=== PATIENT | male | born 2000 | race Caucasian/White ===

== ENCOUNTER 2024-02-29 16:50 | Emergency (ER) | payer OTHER ==
[~2024-02-29] VITALS: Ht 185.4 cm; Wt 75.3 kg
[2024-02-29 19:41] LABS: BASOPHILS 0.2 % (0-2); EOSINOPHILS 0.2 % (0-6); HEMATOCRIT 38.9 % (35.0-50.0); HEMOGLOBIN 13.5 g/dL (12.0-18.0); LYMPHOCYTES 12.2 % (24-44); MCHC 34.7 g/dl (30-36); MCV 89.2 fl (81-99); MONOCYTES 7.9 % (0-12); NEUTROPHILS 79.5 % (39-80); PLATELET COUNT 212 K/uL (140-440); RBC 4.36 M/ul (4.3-5.7); RDW 12.7 (10.5-15.0)
[2024-02-29 20:03] LABS: ALBUMIN 4.6 g/dL (3.4-5.0); ALBUMIN/GLOBULIN RATIO 1.39 (1.1-2.4); ANION GAP 12.5 (7-21); BILIRUBIN, TOTAL 0.4 ng/dL (0.2-1.0); BUN/CREATININE RATIO 18.86 (6.0-28.6); CALCIUM 9.3 mg/dL (8.5-10.1); CREATININE, SERUM 1.06 mg/dL (0.70-1.30); MAGNESIUM 1.8 mg/dL (1.8-2.4); POTASSIUM 3.5 mmol/L (3.5-5.1); PROTEIN, TOTAL 7.9 g/dL (6.4-8.2); TSH, 3RD GENERATION 1.211 uIU/mL (0.358-3.740)
[2024-02-29 20:12] LABS: AMPHETAMINES, URINE NEGATIVE (NEGATIVE); BARBITURATES, URINE NEGATIVE (NEGATIVE); BENZODIAZEPINE, URINE NEGATIVE (NEGATIVE); BUPRENORPHINE, URINE NEGATIVE (NEGATIVE); CANNABINOID, URINE POSITIVE (NEGATIVE); COCAINE, URINE NEGATIVE (NEGATIVE); ECSTASY, URINE NEGATIVE (NEGATIVE); FENTANYL, URINE NEGATIVE (NEGATIVE); METHADONE, URINE NEGATIVE (NEGATIVE); OPIATES, URINE NEGATIVE (NEGATIVE); OXYCODONE, URINE NEGATIVE (NEGATIVE); PHENCYCLIDINE, URINE NEGATIVE (NEGATIVE)
[2024-02-29 21:48] VITALS: BP 126/75
--- NOTE | 2024-03-01 13:54 | EKG ---
[facility] [address] [facility] [facility] [place], [place] [address] Signed Sinus tachycardia Right atrial enlargement Nonspecific ST abnormality Abnormal ECG No previous ECGs available Confirmed by Paradise Rios MD ([id number]) on 03/01/2024 1:53:48 PM Electronically Signed By: PARADISE RIOS 03/01/24 1354 PATIENT NAME: DANIELSEVERARDO Electrocardiogram DATE OF : [birth year] PHYSICIAN: PARADISE RIOS REPORT #: [id number] REPORT IS CONFIDENTIAL AND NOT TO BE RELEASED WITHOUT AUTHORIZATION
[2024-03-02 15:33] LABS: THYROXINE 8.51 ug/dL (4.50-11.70)
== END 2024-02-29 21:48 | disposition home or self-care (01) ==
LOC: ED 16:50
PROVIDERS: Emergency Medicine
DX: R00.2 Palpitations (principal)
CPT/HCPCS: 36415; 80053; 80307; 83735; 84436; 84443; 84484; 85025; 93005; 93010; 99285

== ENCOUNTER 2024-04-04 09:37 | Emergency (ER) | payer OTHER ==
[~2024-04-04] VITALS: Ht 185.4 cm; Wt 78.0 kg
[2024-04-04 10:51] VITALS: BP 123/78
== END 2024-04-04 10:52 | disposition home or self-care (01) ==
LOC: ED 09:37
DX: S93.401A Sprain of unspecified ligament of right ankle, initial encounter (principal); X50.0XXA Overexertion from strenuous movement or load, initial encounter
CPT/HCPCS: 73610; 99283

== ENCOUNTER 2024-04-06 07:54 | Emergency (ER) | payer OTHER ==
[~2024-04-06] VITALS: Ht 185.4 cm; Wt 78.2 kg
--- OUTSIDE RECORDS SUMMARY | 2024-04-06 07:59 | XMS ---
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 E.D. VISIT COUNT (12 MO.) 3 [facility] TOTAL 3 NOTE: Visits indicate total known visits. ED/UCC VISIT TRACKING (12 MO.) 04/06/2024 07:54 [facility] TYPE: Emergency COMPLAINT: - RT ANKLE PAIN 04/04/2024 09:39 [facility] TYPE: Emergency COMPLAINT: - RT ANKLE INJURY DIAGNOSES: - Overexertion from strenuous movement or load, initial encounter - Sprain of unspecified ligament of right ankle, initial encounter - Unspecified injury of right ankle, initial encounter 02/29/2024 16:51 [facility] TYPE: Emergency COMPLAINT: - CHEST PAIN DIAGNOSES: - Palpitations INPATIENT VISIT TRACKING (12 MO.) No inpatient visits to display in this time frame [email or web address]
[2024-04-06] MEDS ORDERED: HYDROCODON-ACE1 EA11 PO (08:27)
[2024-04-06] MEDS ORDERED: HYDROCODONE/ACETA 7.5/325 TAB PO ONE (08:30)
[2024-04-06 08:36] VITALS: BP 140/89
== END 2024-04-06 08:37 | disposition home or self-care (01) ==
LOC: ED 07:54
DX: S93.401A Sprain of unspecified ligament of right ankle, initial encounter (principal); X58.XXXA Exposure to other specified factors, initial encounter; Y93.01 Activity, walking, marching and hiking
CPT/HCPCS: 99283; A9270

== ENCOUNTER 2024-04-10 06:10 | Emergency (ER) | payer OTHER ==
[~2024-04-10] VITALS: Ht 185.4 cm; Wt 79.2 kg
[~2024-04-10 06:10] MED LIST: HYDROCODON-ACE1 EA11 PO
--- OUTSIDE RECORDS SUMMARY | 2024-04-10 06:13 | XMS ---
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 E.D. VISIT COUNT (12 MO.) 4 [facility] TOTAL 4 NOTE: Visits indicate total known visits. ED/UCC VISIT TRACKING (12 MO.) 04/10/2024 06:11 [facility] TYPE: Emergency COMPLAINT: - FOLLOW UP 04/06/2024 07:54 [facility] TYPE: Emergency COMPLAINT: - RT ANKLE PAIN DIAGNOSES: - Activity, walking, marching and hiking - Exposure to other specified factors, initial encounter - Sprain of unspecified ligament of right ankle, initial encounter 04/04/2024 09:39 [facility] TYPE: Emergency [...] visits to display in this time frame [email or web address]
[2024-04-10 06:40] VITALS: BP 134/89
== END 2024-04-10 06:41 | disposition home or self-care (01) ==
LOC: ED 06:10
DX: S93.401D Sprain of unspecified ligament of right ankle, subsequent encounter (principal); X50.0XXD Overexertion from strenuous movement or load, subsequent encounter
CPT/HCPCS: 99283